=== PATIENT | female | born 1990 | race American Indian/Alaskan Native ===

== ENCOUNTER 2021-12-24 16:24 | Emergency (ER) | payer BC ==
[2021-12-24 16:33] VITALS: BP 144/86
[2021-12-24 19:59] LABS: Bilirubin,Urine NEG (Negative); Blood,Urine LG (Negative); Color,Urine Amber (Yellow); Urobilinogen,Urine < 2.0 mg/dL (<2.0)
[2021-12-24 20:39] LABS: HCG Qualitative,Urine Negative (Negative)
--- NOTE | 2021-12-25 00:59 | Emergency Department Report ---
ED Abdominal Pain HPI - General Chief Complaint: Vaginal Bleeding Stated Complaint: VAGINAL BLEEDING/ABD PAIN Time Seen by Provider: 12/24/21 18:47 Source: patient Mode of arrival: Ambulatory Limitations: No Limitations - History of Present Illness Initial Comments: 31 yof with pmh of ovarian cyst presents to the ed for evaluation of abdominal pain and vaginal bleeding since . She states that she has had this problem intermittently for the past year. She denies n/v, fever, dysuria. She denies injury. LMP was last week. MD Complaint: abdominal pain -: days(s) (4) Location: LUQ, RUQ Radiation: none Severity: severe Severity scale (0 -10): 8 Quality: aching Consistency: intermittent Associated Symptoms: denies: nausea, vomiting, diarrhea, fever, chills, dysuria, hematemesis, hematochezia, melena, hematuria, anorexia, syncope - Related Data LMP (females 10-50): last week ED Review of Systems ROS: Stated complaint: VAGINAL BLEEDING/ABD PAIN Other details as noted in HPI Comment: All other systems reviewed and negative Constitutional: denies: chills, fever, malaise, weakness Eyes: denies: eye pain ENT: denies: ear pain Respiratory: denies: cough, shortness of breath, SOB with exertion, SOB at rest Cardiovascular: denies: chest pain, palpitations, dyspnea on exertion, edema, syncope Endocrine: no symptoms reported Gastrointestinal: abdominal pain. denies: nausea, vomiting, diarrhea, hematemesis, melena, hematochezia Genitourinary: denies: urgency, dysuria, frequency, hematuria, discharge Musculoskeletal: denies: back pain Skin: denies: rash, lesions, change in color Neurological: denies: headache, weakness, numbness, paresthesias Psychiatric: denies: anxiety, depression Hematological/Lymphatic: denies: easy bleeding, easy bruising ED Physical Exam - General Limitations: No Limitations General appearance: alert, in no apparent distress - Head Head exam: Present: normocephalic - Eye Eye exam: Present: normal appearance. Absent: conjunctival injection - Neck Neck exam: Present: normal inspection. Absent: tenderness, full ROM - Respiratory Respiratory exam: Present: normal lung sounds bilaterally. Absent: respiratory distress, wheezes, rales, chest wall tenderness, accessory muscle use - Cardiovascular Cardiovascular Exam: Present: regular rate, normal heart sounds - GI/Abdominal GI/Abdominal exam: Present: soft, tenderness (bilateral lower quads), normal bowel sounds. Absent: distended, guarding, rebound, rigid - Extremities Exam Extremities exam: Absent: normal inspection, full ROM - Back Exam Back exam: Absent: normal inspection, full ROM, tenderness, CVA tenderness (R), CVA tenderness (L) - Neurological Exam Neurological exam: Present: alert, oriented X3 - Psychiatric Psychiatric exam: Present: normal affect, normal mood - Skin Skin exam: Present: warm, dry, intact, normal color ED Course Vital Signs 12/24/21 16:29 Temperature 98.7 F Pulse Rate 79 Respiratory 18 Rate Blood Pressure 144/86 O2 Sat by Pulse 100 Oximetry ED Medical Decision Making - Medical Decision Making 31 yof with pmh of ovarian cyst presents to the ed for evaluation of abdominal pain and vaginal bleeding since . She states that she has had this problem intermittently for the past year. She denies n/v, fever, dysuria. She denies injury. LMP was last week. Patient left without notifying anyone before US and did not complete workup. Critical care attestation.: If time is entered above; I have spent that time in minutes in the direct care of this critically ill patient, excluding procedure time. ED Disposition Clinical Impression: Eloped from emergency department Disposition: LEFT AWOL/ELOPED Is pt being admited?: No Condition: Stable Referrals: DIMA MATIAS MD [Primary Care Provider] - 3-5 Days
== END 2021-12-25 02:11 | disposition left against medical advice (07) ==
LOC: ED 16:24
DX: R10.9 Unspecified abdominal pain (principal); N93.9 Abnormal uterine and vaginal bleeding, unspecified; Z53.21 Procedure and treatment not carried out due to patient leaving prior to being seen by health care provider
CPT/HCPCS: 81001; 81025; 99282